=== PATIENT | male | born 1990 | race Asian ===

== ENCOUNTER 2016-10-26 17:32 | Emergency (ER) | payer MEDICAID ==
[~2016-10-26] VITALS: Ht 175.3 cm; Wt 86.2 kg
[2016-10-26 17:40] VITALS: BP 125/73
--- NOTE | 2016-10-26 17:44 | Emergency Room Report ---
History of Present Illness General Chief Complaint: Pain Source: Patient, Significant Other, EMS Present Illness HPI 26YOM BIBEMS from work with severe epigastric pain. 09/10. Non radiating. No assoc fever/chills, nausea/vomiting/diarrhea. No previous abd/pelvic surgery No sick contacts Started after drank coke and iced coffee "one right after another." Denies heavy ETOH, NSAID use Coworker told EMS patient had before , responded to Tums Denies ulcers Allergies: Coded Allergies: No Known Allergies (Unverified , 10/26/16) Patient History Limited by: language barrier Past Medical History: none Past Surgical History: none Pertinent Family History: none Social History: Denies: alcohol use, drug use, smoking Immunizations: UTD Reviewed Nursing Documentation: PMH: Agreed, PSxH: Agreed Nursing Documentation-PMH Past Medical History: No Stated History Review of Systems All Other Systems: negative except mentioned in HPI Physical Exam Vital Signs Date Time Temp Pulse Resp B/P Pulse Ox O2 Delivery O2 Flow Rate FiO2 10/26/16 17:28 98.2 74 18 121/70 100 Room Air Sp02 EP Interpretation: reviewed, normal General Appearance: normal inspection, well appearing, no apparent distress, alert, GCS 15, non-toxic Head: normocephalic, atraumatic Eyes: bilateral eye EOMI, bilateral eye PERRL ENT: normal ENT inspection, hearing grossly normal, normal voice Neck: normal inspection, full range of motion, supple, no bony tend Respiratory: normal inspection, lungs clear, normal breath sounds, no respiratory distress, no retraction, no wheezing Cardiovascular #1: regular rate, rhythm, no edema Gastrointestinal: normal inspection, normal bowel sounds, soft, no guarding, no hernia, other - significant epigastric ttp. Genitourinary: no CVA tenderness Musculoskeletal: normal inspection, back normal, normal range of motion, Stephany' s Sign negative Neurologic: normal inspection, alert, oriented x3, responsive, aligning checker III-XII nml as tested, motor strength/tone normal, speech normal Psychiatric: normal inspection, judgement/insight normal, mood/affect normal Skin: normal inspection, normal color, no rash Medical Decision Making Diagnostic Impression: Primary Impression: Epigastric abdominal pain ER Course Epigastric pain - VSS. Afebrile - Initial epigastric pain resolved with GI cocktail, IV pepcid - Likely gastritis from dietary indiscretion - Labs: No leuks. H&H stable. Mild hypoK. Lipase, LFTs normal - Abd exam non-focal on serial exam - Low suspicion for acute bacterial or surgical process requiring additional monitoring, eval, admission - Rx Pepcid - Primary care referral for endoscopy Last Vital Signs Date Time Temp Pulse Resp B/P Pulse Ox O2 Delivery O2 Flow Rate FiO2 10/26/16 17:40 98.2 77 18 125/73 100 Room Air Status: improved Disposition: HOME, SELF-CARE Scripts Famotidine (PEPCID) 40 Mg Tablet 40 MG PO DAILY for 14 Days, #14 TAB 0 Refills Prov: SERA CAMILO M.D. 10/26/16 SERA CAMILO M.D. Oct 26, 2016 17:44
[2016-10-26] MEDS ORDERED: Lidocaine 2% Visc 15ml soln ORAL ONE (17:45)
[2016-10-26] MEDS ORDERED: Mylanta II UD 30ml ORAL ONE (17:45)
[2016-10-26] MEDS ORDERED: Famotidine 20 MG/ 2ML VIAL IVP ONE (17:45)
[2016-10-26 17:55] LABS: BASOPHILS % (AUTO) 0.4 % (0.0-2.0); EOSINOPHILS % (AUTO) 0.5 % (0.0-3.0); LYMPHOCYTES % (AUTO) 18.4 % (20.0-45.0); MEAN CORPUSCULAR HEMOGLOBIN 30.3 PG (27.0-31.0); MEAN CORPUSCULAR VOLUME 87 FL (80-99); MEAN PLATELET VOLUME 6.9 FL (6.5-10.1); MONOCYTES % (AUTO) 2.4 % (1.0-10.0); NEUTROPHILS % (AUTO) 78.3 % (45.0-75.0); PLATELET COUNT 210 K/UL (150-450); RED BLOOD COUNT 5.24 M/UL (4.70-6.10); RED CELL DISTRIBUTION WIDTH 11.3 % (11.6-14.8); WHITE BLOOD COUNT 7.6 K/UL (4.8-10.8)
[2016-10-26 18:14] LABS: ALANINE AMINOTRANSFERASE 28 U/L (3-41); ANION GAP 17 (5-15); ASPARTATE AMINO TRANSFERASE 23 U/L (5-40); CALCIUM 9.4 mg/dL (8.6-10.2); CARBON DIOXIDE 24 mEQ/L (20-30); CHLORIDE 99 mEQ/L (98-107); CREATININE 0.9 mg/dL (0.7-1.2); GLOMERULAR FILTRATION RATE > 60 mL/min (>60); HEMOLYSIS 4; LIPASE 21 U/L (< 60); POTASSIUM 2.9 mEQ/L (3.4-4.9); SODIUM 140 mEQ/L (135-145); TOTAL PROTEIN 7.2 g/dL (6.6-8.7)
[2016-10-26] MEDS ORDERED: PEPCID40 MG PO (18:16)
[2016-10-26 18:43] VITALS: BP 117/62
[2016-10-26 18:45] VITALS: BP 117/62
== END 2016-10-26 18:46 | disposition home or self-care (01) ==
LOC: EDBD 17:32 → EMR 18:08
DX: R10.13 Epigastric pain (principal)
CPT/HCPCS: 36415; 80053; 83690; 85025; 96374; 99284; S0028